=== PATIENT | male | born 1960 | race African-American/Black ===

== ENCOUNTER 2021-07-06 09:42 | Emergency (ER) | payer OTHER ==
[~2021-07-06] VITALS: Ht 175.3 cm; Wt 107.0 kg
[2021-07-06 09:54] VITALS: BP 176/103
[2021-07-06 13:15] LABS: BASOPHILS % 0.6 % (0.0-2.0); EOSINOPHILS % 2.5 % (0.0-5.0); HEMATOCRIT. 44.1 % (42.0-52.0); HEMOGLOBIN. 14.3 g/dL (14.0-18.0); MEAN CORPUSCULAR HEMOGLOBIN 28.8 pg (28.0-32.0); MEAN CORPUSCULAR VOLUME 88.6 fL (80.0-94.0); MEAN PLATELET VOLUME 9.6 fl (7.4-10.4); MONOCYTES % 8.2 % (2.0-8.0); NEUTROPHILS % 63.7 % (40.0-76.0); PLATELET 208 x1000/uL (130-400); RED BLOOD CELL COUNT 4.98 mill/uL (4.7-6.1); RED CELL DISTRIBUTION WIDTH 13.7 % (11.6-14.6)
[2021-07-06 13:20] LABS: CHLORIDE 109 mEq/L (98-107)
[2021-07-06 13:28] LABS: ETHANOL BLOOD < 10 mg/dL
[2021-07-06 15:10] LABS: CLARITY URINE CLEAR (CLEAR); COLOR URINE YELLOW (YELLOW); KETONES URINE NEGATIVE (NEGATIVE); LEUKOCYTE ESTERASE URINE NEGATIVE (NEGATIVE); NITRITE URINE NEGATIVE (NEGATIVE); OCCULT BLOOD URINE NEGATIVE (NEGATIVE); PH URINE 5.5 (4.5-8.0); PROTEIN URINE NEGATIVE (NEGATIVE); SPECIFIC GRAVITY URINE 1.027 (1.005-1.030); UROBILINOGEN URINE 0.2 E.U./dL (0.2-1.0)
[2021-07-06 15:53] LABS: *AMPHETAMINES SCREEN URINE NEGATIVE (NEGATIVE); *BARBITURATES SCREEN URINE NEGATIVE (NEGATIVE); *BENZODIAZEPINES SCREEN URINE NEGATIVE (NEGATIVE); *COCAINE SCREEN URINE NEGATIVE (NEGATIVE)
[2021-07-06 15:54] LABS: OPIATES URINE SCREEN NEGATIVE (NEGATIVE); PHENCYCLIDINE URINE SCREEN NEGATIVE (NEGATIVE)
[2021-07-06 16:01] LABS: CANNABINOID URINE SCREEN NEGATIVE (NEGATIVE)
[2021-07-06 16:02] LABS: METHADONE URINE SCREEN NEGATIVE (NEGATIVE)
[2021-07-06] MEDS ORDERED: ONDA4TAB11 PO (16:49)
[2021-07-06] MEDS ORDERED: T3 PO (16:49)
[2021-07-06] MEDS ORDERED: OMEP20CA14 MT (16:49)
== END 2021-07-06 17:01 | disposition home or self-care (01) ==
LOC: ER 09:42
DX: K42.9 Umbilical hernia without obstruction or gangrene (principal); K40.90 Unilateral inguinal hernia, without obstruction or gangrene, not specified as recurrent; I10 Essential (primary) hypertension; I25.2 Old myocardial infarction; E78.00 Pure hypercholesterolemia, unspecified; K21.9 Gastro-esophageal reflux disease without esophagitis
CPT/HCPCS: 36415; 74176; 80053; 80305; 80320; 81003; 85025; 93005; 99285; G0480